=== PATIENT | male | born 1995 | race Caucasian/White ===

== ENCOUNTER 2020-12-27 09:27 | Emergency (ER) | payer OTHER ==
[~2020-12-27] VITALS: Ht 182.9 cm; Wt 113.6 kg
[2020-12-27 10:31] LABS: HEMATOCRIT 44.3 % (42.0-52.0); HEMOGLOBIN 14.8 g/dl (13.5-17.5); MEAN CORPUSCULAR HGB CONC 33.4 g/dl (32.0-36.5); MEAN CORPUSCULAR VOLUME 95.7 fl (80.0-96.0); PLATELET COUNT, AUTOMATED 306 10^3/uL (150-450); RED BLOOD COUNT 4.63 10^6/uL (4.30-6.10); WHITE BLOOD COUNT 8.3 10^3/uL (4.0-10.0)
[2020-12-27 10:58] LABS: BLOOD UREA NITROGEN 12 MG/DL (7-18); CALCIUM LEVEL 9.4 MG/DL (8.5-10.1); CARBON DIOXIDE LEVEL 26 MEQ/L (21-32); CHLORIDE LEVEL 100 MEQ/L (98-107); CREATININE FOR GFR 1.02 MG/DL (0.70-1.30); ETHYL ALCOHOL (ETHANOL) 0.023 % (0.000-0.010); GLOMERULAR FILTRATION RATE > 60.0 (>60); GLUCOSE, FASTING 77 MG/DL (70-100); MAGNESIUM LEVEL 1.9 MG/DL (1.8-2.4); SODIUM LEVEL 135 MEQ/L (136-145)
[2020-12-27] MEDS ORDERED: LORazepam 2 MG/ML VIAL IV STA (11:59)
[2020-12-27] MEDS ORDERED: LORazepam 2 MG/ML VIAL As Ordered ONE (12:08)
[2020-12-27] MEDS ORDERED: OXAZ10CA3 PO (13:50)
[2020-12-27 14:00] VITALS: BP 151/81
== END 2020-12-27 14:22 | disposition home or self-care (01) ==
LOC: M ED 09:27
DX: F10.231 Alcohol dependence with withdrawal delirium (principal)
CPT/HCPCS: 36415; 80048; 82077; 83735; 85027; 96374; 99284; J2060